=== PATIENT | male | born 1975 | race Caucasian/White ===

== ENCOUNTER 2016-09-09 10:05 | Emergency (ER) | payer SELFPAY ==
[2016-09-09] MEDS ORDERED: Benzocaine 20% Topical Spray UD MUCMEM ONE (10:42)
[2016-09-09] MEDS ORDERED: Lidocaine 2% Viscous Solution 15 ML Cup PO ONE (10:42)
--- NOTE | 2016-09-09 10:47 | EDM.PDOC ---
ED HPI GENERAL MEDICAL PROBLEM - General Chief Complaint: General Stated Complaint: UPPER MOUTH/TOOTH PAIN Time Seen by Provider: 09/09/16 10:07 Source of Information: Reports: Patient History Limitations: Reports: No limitations - History of Present Illness INITIAL COMMENTS - FREE TEXT/NARRATIVE: History of present illness: []patient presents with two-week history of diffuse dental pain. Patient states that he did not want to go to a dentist that this happened 2 years ago and with the dentist pull his tooth. He then learned that he could have just had antibiotics and not had tooth pulled. She denies any fevers, facial swelling, difficulty swallowing or breathing. Review of systems: As per history of present illness and below otherwise all systems reviewed and negative. Past medical history: As per history of present illness and as reviewed below otherwise noncontributory. Surgical history: As per history of present illness and as reviewed below otherwise noncontributory. Social history: No reported history of drug or alcohol abuse. Family history: As per history of present illness and as reviewed below otherwise noncontributory. Physical exam: General: Well developed, well nourished in NAD HEENT: Atraumatic, normocephalic, pupils reactive, negative for conjunctival pallor or scleral icterus, mucous membranes moist, throat clear, neck supple, nontender, trachea midline.poor dentition throughout Lungs: Clear to auscultation, breath sounds equal bilaterally, chest nontender. Heart: S1S2, regular, negative for clicks, rubs, or JVD. Abdomen: Soft, nondistended, nontender. Negative for masses or hepatosplenomegaly. Negative for costovertebral tenderness. Pelvis: Stable nontender. Genitourinary: Deferred. Rectal: Deferred. Extremities: Atraumatic, negative for cords or calf pain. Neurovascular unremarkable. Neuro: Awake, alert, oriented. Cranial nerves II through XII unremarkable. Cerebellum unremarkable. Motor and sensory unremarkable throughout. Exam nonfocal. Diagnostics: [] Therapeutics: [] Impression: []All [place] for pain Plan: []followup with the dentist Definitive disposition and diagnosis as appropriate pending reevaluation and review of above. Oral/Mouth Pain Score (Numeric/FACES): 6 - Related Data Allergies Allergy/AdvReac Type Severity Reaction Status Date / Time No Known Allergies Allergy Verified 06/18/16 14:52 Home Meds: Home Meds . 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 Psychiatric History: Reports: None Endocrine/Metabolic History: Reports: None Hematologic History: Reports: None Immunologic History: Reports: None Oncologic (Cancer) History: Reports: None Dermatologic History: Reports: None - Infectious Disease History Infectious Disease History: Reports: Chicken pox - Past Surgical History Head Surgeries/Procedures: Reports: None Social & Family History - Family History Family Medical History: Noncontributory - Tobacco Use Smoking Status *Q: Current Every Day Smoker Years of Tobacco use: 12 Packs/Tins Daily: 1 - Caffeine Use Caffeine Use: Reports: Coffee, Soda - Recreational Drug Use Recreational Drug Use: No ED ROS GENERAL - Review of Systems Review Of Systems: See Below (see history of present illness) ED EXAM, GENERAL - Physical Exam Exam: See Below (see history of present illness) Course - Vital Signs Last Recorded V/S: Last Vital Signs Temp 35.8 C 09/09/16 10:28 Pulse 70 09/09/16 10:28 Resp 18 09/09/16 10:28 BP 160/90 H 09/09/16 10:28 Pulse Ox 98 09/09/16 10:28 Departure - Departure Time of Disposition: 10:41 Disposition: Home, Self-Care 01 Condition: good Clinical Impression: Pain, dental, Dental caries noted on examination Forms: ED Department Discharge Additional Instructions: The following information is given to patients seen in the emergency department who are being discharged to home. This information is to outline your options for follow-up care. We provide all patients seen in our emergency department with a follow-up referral. The need for follow-up, as well as the timing and circumstances, are variable depending upon the specifics of your emergency department visit. If you don't have a primary care physician on staff, we will provide you with a referral. We always advise you to contact your personal physician following an emergency department visit to inform them of the circumstance of the visit and for follow-up with them and/or the need for any referrals to a consulting specialist. The emergency department will also refer you to a specialist when appropriate. This referral assures that you have the opportunity for follow-up care with a specialist. All of these measure are taken in an effort to provide you with optimal care, which includes your follow-up. Under all circumstances we always encourage you to contact your private physician who remains a resource for coordinating your care. When calling for follow-up care, please make the office aware that this follow-up is from your recent emergency room visit. If for any reason you are refused follow-up, please contact the [facility] Emergency Department at and asked to speak to the emergency department charge nurse. penicillin VK, Motrin for pain anddental balls as needed for pain follow up with dentist [facility] [address] [place] [id number]
[2016-09-09 11:09] VITALS: BP 123/90
== END 2016-09-09 11:09 | disposition home or self-care (01) ==
LOC: MW.ED 10:05
DX: K08.89 Other specified disorders of teeth and supporting structures (principal); K02.9 Dental caries, unspecified; F17.210 Nicotine dependence, cigarettes, uncomplicated
CPT/HCPCS: 99282; A9270; 99283

== ENCOUNTER 2018-09-28 16:37 | Emergency (ER) | payer SELFPAY ==
[2018-09-28 17:33] VITALS: BP 144/103
[2018-09-28] MEDS ORDERED: Lidocaine 2% Viscous Solution 15 ML Cup PO ONE (17:48)
[2018-09-28] MEDS ORDERED: Benzocaine 20% Topical Spray UD MUCMEM ONE (17:48)
--- NOTE | 2018-09-28 18:01 | EDM.PDOC ---
ED HPI GENERAL MEDICAL PROBLEM - General Chief Complaint: General Stated Complaint: TOOTH PAIN Time Seen by Provider: 09/28/18 17:43 Source of Information: Reports: Patient History Limitations: Reports: No Limitations - History of Present Illness INITIAL COMMENTS - FREE TEXT/NARRATIVE: HISTORY AND PHYSICAL: History of present illness: Patient is a 43-year-old male presents to the ED today with concern of dental pain and swelling 1 day. Patient states he is in the process of getting his teeth pulled for implants. Patient states he was just in with his dentist last week but was not having tooth pain to the dentist left the tooth alone. Patient states starting today he has 7 out of 10 dental pain of his bad tooth. Patient states he has not taken anything for her symptoms at home. Patient denies any other symptoms at this time. Patient denies fever, chills, chest pain, shortness of breath, or cough. Denies headache, neck stiff ness, change in vision, syncope, or near syncope. Denies nausea, vomiting, abdominal pain, diarrhea, constipation, or dysuria. Has not noted any blood in urine or stool. Patient has been eating and drinking appropriately. Review of systems: As per history of present illness and below otherwise all systems reviewed and negative. Past medical history: As per history of present illness and as reviewed below otherwise noncontributory. Surgical history: As per history of present illness and as reviewed below otherwise noncontributory. Social history: See social history for further information Family history: As per history of present illness and as reviewed below otherwise noncontributory. Physical exam: General: Patient is alert, oriented, and in no acute distress. Patient sitting comfortably on exam table. HEENT: Atraumatic, normocephalic, pupils equal and reactive bilaterally, negative for conjunctival pallor or scleral icterus, mucous membranes moist, TMs normal bilaterally, throat clear, neck supple, nontender, trachea midline. No drooling or trismus noted. No meningeal signs. No hot potato voice noted. Generalized poor dentition with several teeth missing. Tooth #3 is severely eroded with surrounding edema and erythema of the gumline. Lungs: Clear to auscultation, breath sounds equal bilaterally, chest nontender. Heart: S1S2, regular rate and rhythm without overt murmur Abdomen: Soft, nondistended, nontender. Negative for masses or hepatosplenomegaly. Negative for costovertebral tenderness. Pelvis: Stable nontender. Genitourinary: Deferred. Rectal: Deferred. Skin: Intact, warm, dry. No lesions or rashes noted. Extremities: Atraumatic, negative for cords or calf pain. Neurovascular unremarkable. Neuro: Awake, alert, oriented. Cranial nerves II through XII unremarkable. Cerebellum unremarkable. Motor and sensory unremarkable throughout. Exam nonfocal. Notes: Discussed the importance for follow-up with the dentist for definitive treatment. Voices understanding and is agreeable to plan of care. Denies any further questions or concerns at this time. Diagnostics: None Therapeutics: dental balls Prescription: Amoxicillin Impression: Dental abscess Plan: 1. Please take medication as prescribed. 2. Tylenol and/or ibuprofen as directed and as needed for pain management. 3. "Tooth Balls" have been given to you; apply along the gumline every 2-3 hours as needed. Do not swallow these; external use only. 4. Follow-up with a dentist for definitive care. Return to the ED as needed and as discussed. Definitive disposition and diagnosis as appropriate pending reevaluation and review of above. Right Upper Tooth/Teeth Pain Score (Numeric/FACES): 9 - Related Data Allergies Allergy/AdvReac Type Severity Reaction Status Date / Time No Known Allergies Allergy Verified 09/28/18 17:33 Home Meds: Home Meds . 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 Psychiatric History: Reports: None Endocrine/Metabolic History: Reports: None Hematologic History: Reports: None Immunologic History: Reports: None Oncologic (Cancer) History: Reports: None Dermatologic History: Reports: None - Infectious Disease History Infectious Disease History: Reports: Chicken Pox - Past Surgical History Head Surgeries/Procedures: Reports: None HEENT Surgical History: Reports: Oral Surgery Musculoskeletal Surgical History: Reports: Other (See Below) Social & Family History - Family History Family Medical History: Noncontributory - Tobacco Use Smoking Status *Q: Current Every Day Smoker Years of Tobacco use: 26 Packs/Tins Daily: 0.5 - Caffeine Use Caffeine Use: Reports: Coffee, Energy Drinks, Soda, Tea - Recreational Drug Use Recreational Drug Use: No ED ROS GENERAL - Review of Systems Review Of Systems: ROS reveals no pertinent complaints other than HPI. ED EXAM, GENERAL - Physical Exam Exam: See Below (See dictation) Course - Vital Signs Last Recorded V/S: Last Vital Signs Temp 36.5 C 09/28/18 17:30 Pulse 76 09/28/18 17:30 Resp BP 144/103 H 09/28/18 17:30 Pulse Ox 96 09/28/18 17:30 - Orders/Labs/Meds Meds: Medications Discontinued Medications Generic Name Dose Route Start Last Admin Trade Name Crow PRN Reason Stop Dose Admin Benzocaine 2 each 09/28/18 17:48 Hurricaine One 20% MUCMEM 09/28/18 17:49 ONETIME ONE Lidocaine HCl 15 ml 09/28/18 17:48 Xylocaine 2% Viscous PO 09/28/18 17:49 ONETIME ONE Departure - Departure Time of Disposition: 18:00 Disposition: Home, Self-Care 01 Clinical Impression: Dental abscess - Discharge Information Instructions: Dental Abscess, [id number] Referrals: PCP,Unknown [Primary Care Provider] - Forms: ED Department Discharge Additional Instructions: The following information is given to patients seen in the emergency department who are being discharged to home. This information is to outline your options for follow-up care. We provide all patients seen in our emergency department with a follow-up referral. The need for follow-up, as well as the timing and circumstances, are variable depending upon the specifics of your emergency department visit. If you don't have a primary care physician on staff, we will provide you with a referral. We always advise you to contact your personal physician following an emergency department visit to inform them of the circumstance of the visit and for follow-up with them and/or the need for any referrals to a consulting specialist. The emergency department will also refer you to a specialist when appropriate. This referral assures that you have the opportunity for follow-up care with a specialist. All of these measure are taken in an effort to provide you with optimal care, which includes your follow-up. Under all circumstances we always encourage you to contact your private physician who remains a resource for coordinating your care. When calling for follow-up care, please make the office aware that this follow-up is from your recent emergency room visit. If for any reason you are refused follow-up, please contact the [facility] Emergency Department at and asked to speak to the emergency department charge nurse. [facility] [address] [place] [address] [facility] [address] [place] [id number] 1. Please take medication as prescribed. 2. Tylenol and/or ibuprofen as directed and as needed for pain management. 3. "Tooth Balls" have been given to you; apply along the gumline every 2-3 hours as needed. Do not swallow these; external use only. 4. Follow-up with a dentist for definitive care. Return to the ED as needed and as discussed.
== END 2018-09-28 18:38 | disposition home or self-care (01) ==
LOC: MW.ED 16:37
DX: K04.7 Periapical abscess without sinus (principal); F17.210 Nicotine dependence, cigarettes, uncomplicated
CPT/HCPCS: 99282; A9270; 99283

== ENCOUNTER 2019-02-27 10:12 | Emergency (ER) | payer BC ==
[2019-02-27 10:32] VITALS: BP 143/69; PULSE 87
--- NOTE | 2019-02-27 10:56 | EDM.PDOC ---
ED HPI GENERAL MEDICAL PROBLEM - General Chief Complaint: Abdominal Pain Stated Complaint: STOMACH PAIN Time Seen by Provider: 02/27/19 10:33 Source of Information: Reports: Patient History Limitations: Reports: No Limitations - History of Present Illness INITIAL COMMENTS - FREE TEXT/NARRATIVE: HISTORY AND PHYSICAL: History of present illness: 43-year-old male presents to ER complaining of abdominal pain. The pain is located in his right upper quadrant and started 4 days ago. The pain comes and goes and is described as being dull in nature and does not radiate. He is currently not experiencing the pain. Patient reports that he typically experiences the pain after 30 minutes after eating. The pain is aggravated when he pushes on the right upper quadrant of his abdomen. When he does have the pain it is rated as 3-4 out of 10 on a pain scale. He also reports having soft stools and nausea. He has been taking OTC Excedrin and Pepto Bismol. Denies having any fevers, blurry vision, shortness of breath, chest pain, vomiting, blood in stool, blood in urine or numbness and tingling in extremities. Review of systems: As per history of present illness and below otherwise all systems reviewed and negative. Past medical history: As per history of present illness and as reviewed below otherwise noncontributory. Surgical history: As per history of present illness and as reviewed below otherwise noncontributory. Social history: No reported history of drug or alcohol abuse. Family history: As per history of present illness and as reviewed below otherwise noncontributory. Physical exam: HEENT: Atraumatic, normocephalic, pupils reactive, negative for conjunctival pallor or scleral icterus, mucous membranes moist, throat clear, neck supple, nontender, trachea midline. Lungs: Clear to auscultation, breath sounds equal bilaterally. Heart: S1S2, regular rhythm. Abdomen: Soft, nondistended, nontender to palpation, normal bowel sounds, Malhotra 's sign negative. Pelvis: Deferred. Genitourinary: Deferred. Rectal: Deferred. Extremities: Atraumatic. Neurovascular unremarkable. Neuro: Awake, alert, oriented. Cranial nerves II through XII unremarkable. Diagnostics: RUQ ultrasound, CBC, CMP Therapeutics: None Impression: 1. Right upper quadrant abdominal pain Plan: 1. For right upper quadrant abdominal pain, lab work was unremarkable and ultrasound was negative. Prescription for hyoscyamine provided. Recommended follow-up with primary care provider in 2-4 days. Advised to return to ER if develops fevers and worsening pain. Definitive disposition and diagnosis as appropriate pending reevaluation and review of above. Right Upper Abdominal Pain Score (Numeric/FACES): 4 - Related Data Allergies Allergy/AdvReac Type Severity Reaction Status Date / Time No Known Allergies Allergy Verified 02/27/19 10:32 Home Meds: Home Meds Hyoscyamine Sulfate [Levsin] 0.125 mg PO Q4H PRN 3 Days #18 tablet 02/27/19 [Rx] Past Medical History - Past Health History Medical/Surgical History: Denies Medical/Surgical History HEENT History: Reports: None Cardiovascular History: Reports: None Respiratory History: Reports: None Gastrointestinal History: Reports: None Genitourinary History: Reports: None Musculoskeletal History: Reports: Fracture Neurological History: Reports: Head Trauma 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 Psychiatric History: Reports: None Endocrine/Metabolic History: Reports: None Hematologic History: Reports: None Immunologic History: Reports: None Oncologic (Cancer) History: Reports: None Dermatologic History: Reports: None - Infectious Disease History Infectious Disease History: Reports: None - Past Surgical History Head Surgeries/Procedures: Reports: None HEENT Surgical History: Reports: Oral Surgery Musculoskeletal Surgical History: Reports: Other (See Below) Social & Family History - Family History Family Medical History: Noncontributory - Tobacco Use Smoking Status *Q: Current Every Day Smoker Years of Tobacco use: 28 Packs/Tins Daily: 1 - Caffeine Use Caffeine Use: Reports: Coffee - Recreational Drug Use Recreational Drug Use: No ED ROS GENERAL - Review of Systems Review Of Systems: ROS reveals no pertinent complaints other than HPI. ED EXAM, GI/ABD - Physical Exam Exam: See Below Course - Vital Signs Last Recorded V/S: Last Vital Signs Temp 97.3 F 02/27/19 10:29 Pulse 87 02/27/19 10:29 Resp 16 02/27/19 10:29 BP 143/69 H 02/27/19 10:29 Pulse Ox 96 02/27/19 10:29 - Orders/Labs/Meds Labs: Laboratory Tests 02/27/19 02/27/19 02/27/19 Range/Units 11:00 11:00 11:00 WBC 11.10 H (4.0-11.0) K/uL RBC 5.10 (4.50-5.90) M/uL Hgb 14.9 (13.0-17.0) g/dL Hct 46.0 (38.0-50.0) % MCV 90.2 (80.0-98.0) fL MCH 29.2 (27.0-32.0) pg MCHC 32.4 (31.0-37.0) g/dL RDW Std Deviation 45.2 (28.0-62.0) fl RDW Coeff of Maren 14 (11.0-15.0) % Plt Count 263 (150-400) K/uL MPV 9.10 (7.40-12.00) fL Neut % (Auto) 73.3 (48.0-80.0) % Lymph % (Auto) 19.6 (16.0-40.0) % [place] % (Auto) 6.1 (0.0-15.0) % Eos % (Auto) 0.6 (0.0-7.0) % Baso % (Auto) 0.4 (0.0-1.5) % Neut # (Auto) 8.1 H (1.4-5.7) K/uL Lymph # (Auto) 2.2 (0.6-2.4) K/uL [place] # (Auto) 0.7 (0.0-0.8) K/uL Eos # (Auto) 0.1 (0.0-0.7) K/uL Baso # (Auto) 0.0 (0.0-0.1) K/uL Nucleated RBC % 0.0 /100WBC Nucleated RBCs # 0 K/uL Sodium 140 (136-148) mmol/L Potassium 3.9 (3.5-5.1) mmol/L Chloride 104 (98-107) mmol/L Carbon Dioxide 22.5 (21.0-32.0) mmol/L BUN 14 (7.0-18.0) mg/dL Creatinine 1.0 (0.8-1.3) mg/dL Est Cr Clr Drug Dosing 97.21 mL/min Estimated GFR (MDRD) > 60.0 ml/min Glucose 102 (74-106) mg/dL Calcium 9.1 (8.5-10.1) mg/dL Total Bilirubin 0.3 (0.2-1.0) mg/dL AST 15 (15-37) IU/L ALT 21 (14-63) IU/L Alkaline Phosphatase 70 (46-116) U/L Total Protein 7.2 (6.4-8.2) g/dL Albumin 4.2 (3.4-5.0) g/dL Globulin 3.0 (2.6-4.0) g/dL Albumin/Globulin Ratio 1.4 (0.9-1.6) Lipase 97 (73-393) U/L Departure - Departure Time of Disposition: 12:19 Disposition: Home, Self-Care 01 Condition: Good Clinical Impression: Abdominal pain - Discharge Information *PRESCRIPTION DRUG MONITORING PROGRAM REVIEWED*: Not Applicable *COPY OF PRESCRIPTION DRUG MONITORING REPORT IN PATIENT JUANCARLOS: Not Applicable Prescriptions: Hyoscyamine Sulfate [Levsin] 0.125 mg PO Q4H PRN 3 Days #18 tablet PRN Reason: Abdominal Pain Instructions: Abdominal Pain, Adult, [id number] Referrals: PCP,None [Primary Care Provider] - Forms: ED Department Discharge Additional Instructions: The following information is given to patients seen in the emergency department who are being discharged to home. This information is to outline your options for follow-up care. We provide all patients seen in our emergency department with a follow-up referral. The need for follow-up, as well as the timing and circumstances, are variable depending upon the specifics of your emergency department visit. If you don't have a primary care physician on staff, we will provide you with a referral. We always advise you to contact your personal physician following an emergency department visit to inform them of the circumstance of the visit and for follow-up with them and/or the need for any referrals to a consulting specialist. The emergency department will also refer you to a specialist when appropriate. This referral assures that you have the opportunity for follow-up care with a specialist. All of these measure are taken in an effort to provide you with optimal care, which includes your follow-up. Under all circumstances we always encourage you to contact your private physician who remains a resource for coordinating your care. When calling for follow-up care, please make the office aware that this follow-up is from your recent emergency room visit. If for any reason you are refused follow-up, please contact the [facility] Emergency Department at and asked to speak to the emergency department charge nurse.
[2019-02-27 11:36] LABS: BLOOD UREA NITROGEN,BUN 14 mg/dL (7.0-18.0); CARBON DIOXIDE,CO2 22.5 mmol/L (21.0-32.0); CHLORIDE,CL 104 mmol/L (98-107); GLUCOSE RANDOM 102 mg/dL (74-106); POTASSIUM,K 3.9 mmol/L (3.5-5.1); SODIUM,NA 140 mmol/L (136-148)
--- NOTE | 2019-02-27 11:53 | US ---
Limited abdominal ultrasound: Multiple real-time images of the right upper abdomen were obtained. Comparison: No previous abdominal imaging. Liver shows no focal parenchymal abnormality. Gallbladder contains no shadowing gallstones. No gallbladder wall thickening or biliary duct dilatation is seen. Right kidney shows no hydronephrosis or mass. Right kidney has a length of 11.9 cm. Pancreas is incompletely seen. Visualized portions of the pancreas are within normal limits. Impression: No abnormality is identified on right upper quadrant abdominal ultrasound exam. Diagnostic code #1 MTDD
== END 2019-02-27 12:33 | disposition home or self-care (01) ==
LOC: MW.ED 10:12
DX: R10.11 Right upper quadrant pain (principal); F17.210 Nicotine dependence, cigarettes, uncomplicated
CPT/HCPCS: 36415; 76705; 76705-26; 80053; 83690; 85025; 99284-25

== ENCOUNTER 2019-05-26 11:15 | Emergency (ER) | payer BC ==
--- NOTE | 2019-05-26 12:38 | CT ---
Head CT Technique: Multiple axial sections through the brain were obtained. Intravenous contrast was not utilized. Comparison: No prior intracranial imaging is available. Findings: Ventricles along with basal cisterns and sulci over the convexities are within normal limits for the patient's age. No abnormal parenchymal densities are seen. No evidence of intracranial hemorrhage. No midline shift or mass effect is seen. Bone window settings were reviewed which shows no acute calvarial abnormality. Mastoid sinuses show nothing acute. Visualized paranasal sinuses shows minimal mucosal thickening within the ethmoid and maxillary sinuses. Impression: 1. Minimal paranasal sinus findings which are believed to be incidental. 2. No acute intracranial abnormality is identified on noncontrast head CT exam. Diagnostic code #2 This report was dictated in [place] Standard Time
[2019-05-26 12:41] LABS: BLOOD UREA NITROGEN,BUN 8 mg/dL (7.0-18.0); CARBON DIOXIDE,CO2 25.4 mmol/L (21.0-32.0); CHLORIDE,CL 104 mmol/L (98-107); GLUCOSE RANDOM 104 mg/dL (74-106); POTASSIUM,K 4.4 mmol/L (3.5-5.1); SODIUM,NA 141 mmol/L (136-148)
[2019-05-26] MEDS: Acetaminophen 500 MG Tab PO ONE (12:52)
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
[2019-05-26 14:40] VITALS: BP 146/97; PULSE 87
== END 2019-05-26 15:10 | disposition other institution (70) ==
LOC: MW.ED 11:15
DX: R45.851 Suicidal ideations (principal); F17.210 Nicotine dependence, cigarettes, uncomplicated
CPT/HCPCS: 36415; 70450; 80053; 80305; 81003; 83735; 84443; 85025; 99285; A9270; 99284

== ENCOUNTER 2019-12-24 19:59 | Emergency (ER) | payer SELFPAY ==
--- NOTE | 2019-12-24 21:12 | CR ---
Left shoulder: 3 views left shoulder were obtained. Comparison: No prior shoulder exam is available. Fracture is noted within the shaft of the clavicle. Minimal angulation is noted. Glenohumeral joint and acromioclavicular joint appears within normal limits. No additional fracture or other bony abnormality is appreciated. Impression: 1. Minimally angulated clavicular shaft fracture. 2. Left shoulder study is otherwise unremarkable. Diagnostic code #3 This report was dictated in MDT
[2019-12-24] MEDS ORDERED: HYDROmorphone 1 MG/ML Syringe IVPUSH ONE (23:09)
[2019-12-24] MEDS ORDERED: Ondansetron 4 MG/2 ML SDV IVPUSH ONE (23:10)
[2019-12-24] MEDS ORDERED: HYDROmorphone 1 MG/ML Syringe IM ONE (23:15)
[2019-12-24] MEDS ORDERED: Ondansetron 4 MG Tab.DIS PO ONE (23:15)
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
[2019-12-25 02:53] VITALS: BP 140/82; PULSE 97
== END 2019-12-24 23:34 | disposition home or self-care (01) ==
LOC: MW.ED 19:59
DX: S42.022A Displaced fracture of shaft of left clavicle, initial encounter for closed fracture (principal); W21.03XA Struck by baseball, initial encounter; Y93.64 Activity, baseball; Z79.899 Other long term (current) drug therapy
CPT/HCPCS: 73030; 96372; 99283; A9270; J1170